=== PATIENT | male | born 1985 | race Caucasian/White ===

== ENCOUNTER 2016-06-08 19:55 | Emergency (ER) | payer SELFPAY | END 2016-06-08 20:40 | disposition left against medical advice (07) | LOC: ER 19:58 | DX: Z53.21 Procedure and treatment not carried out due to patient leaving prior to being seen by health care provider (principal) ==

== ENCOUNTER 2019-04-11 15:07 | Emergency (ER) | payer OTHER ==
[~2019-04-11] VITALS: Ht 170.2 cm; Wt 92.5 kg
[2019-04-11 15:43] LABS: BASOPHILS # (AUTO) 0.1 /CMM (0.0-0.2); EOSINOPHILS % (AUTO) 0.4 % (0.0-6.0); HEMATOCRIT 50 % (39-51); HEMOGLOBIN 17.4 g/dL (13.5-17.5); LYMPHOCYTES # (AUTO) 1.2 /CMM (0.8-4.8); LYMPHOCYTES % (AUTO) 18.1 % (20.0-44.0); MEAN CORPUSCULAR HGB CONC 35 g/dl (31.0-36.0); MEAN CORPUSCULAR VOLUME 87 fL (80-96); MONOCYTES # (AUTO) 0.9 /CMM (0.1-1.30); NEUTROPHILS # (AUTO) 4.3 /CMM (1.8-8.9); NEUTROPHILS % (AUTO) 66.5 % (43.0-81.0); PLATELET COUNT (AUTO) 131 /CMM (150-450); RED BLOOD CELL COUNT(AUTO) 5.81 MIL/uL (4.5-6.0); WHITE BLOOD COUNT (AUTO) 6.4 K/uL (4.3-11.0)
--- NOTE | 2019-04-11 15:44 | NUR ---
Patient awake alert no s/s of distres SR in monitor lab draws done continue to monitor
[2019-04-11 15:54] LABS: CALCIUM, SERUM 9.2 mg/dL (8.5-10.1); CARBON DIOXIDE 29 mmol/L (21-32); CHLORIDE 100 mmol/L (98-107); CREATININE 1.4 mg/dL (0.6-1.3); GLUCOSE 96 mg/dL (74-106); POTASSIUM 3.8 mmol/L (3.5-5.1); SODIUM SERUM 136 mmol/L (136-145); UREA NITROGEN, BLOOD 15 mg/dL (7-18)
--- NOTE | 2019-04-11 16:30 | NUR ---
Doppler study done
[2019-04-11] MEDS ORDERED: ACETAMINOPHEN 325 MG TABLET ONE (17:06)
[2019-04-11] MEDS: ACETAMINOPHEN 325 MG TABLET PO ONE (17:07)
--- NOTE | 2019-04-11 17:08 | NUR ---
Patient influenza swab done and Tylenol given
--- NOTE | 2019-04-11 18:22 | NUR ---
Patient lab draw troponin done
--- NOTE | 2019-04-11 19:14 | NUR ---
PT RECEIVED IN BED AAOX4. NAD NOTED.
--- NOTE | 2019-04-11 19:20 | NUR ---
Patient helplock removed from LAC noted cath intact ,no redness, no edema
--- NOTE | 2019-04-11 19:20 | NUR ---
Patient discharged to home in stable condition. Written and verbal after care instructions given. Patient verbalizes understanding of instruction.
[2019-04-11 19:21] VITALS: BP 123/78
== END 2019-04-11 19:22 | disposition home or self-care (01) ==
LOC: ER 15:08
DX: R07.89 Other chest pain (principal); J11.1 Influenza due to unidentified influenza virus with other respiratory manifestations; D69.6 Thrombocytopenia, unspecified; F17.200 Nicotine dependence, unspecified, uncomplicated
CPT/HCPCS: 36415; 71045-TC; 80048-TC; 84484-TC; 85025-TC; 85378-TC; 85730-TC; 93970-TC